=== PATIENT | male | born 1945 | race Caucasian/White ===

== ENCOUNTER 2017-07-07 10:55 | Emergency (ER) | payer OTHER ==
--- NOTE | 2017-07-07 11:53 | EDPHY ---
H & P Time Seen by Provider: 07/07/17 11:24 HPI/ROS: CHIEF COMPLAINT: Left-sided facial numbness HISTORY OF PRESENT ILLNESS: Patient is a 72-year-old male who presents emergency department with multiple symptoms. On Friday he developed left- sided headaches. These were waxing and waning. On Friday he noticed that his left gum went numb. He went to urgent care on Friday and was subsequently discharged. He set up an appointment for follow-up with his primary care physician. Today he woke up with the left side of his face feeling numb. He went to urgent care and was sent to the emergency department. Patient states that he has had some taste sensation changes on his tongue. Feels as though he cannot fully close his left eye. He has no visual change. No neck pain. No recent fall or trauma. No fevers or chills. REVIEW OF SYSTEMS: My complete review of systems is negative except as mentioned in the HPI. 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 No hypertension , no diabetes, no coronary artery disease Social history: The patient does not smoke Smoking Status: Never smoked Physical Exam: Vitals noted GENERAL: Well-appearing, in no acute distress, alert. HEENT: mildly injected left eye, normal pharynx, no signs of dehydration. Extraocular movements intact. PERRLA NECK: No thyromegaly, no lymphadenopathy, supple. RESPIRATORY: Clear to auscultation bilaterally, no rales, rhonchi or wheezing. CVS: Regular rate and rhythm, no rubs, murmurs, or gallops. ABDOMEN: Soft, nontender, nondistended, no organomegaly. BACK: Normal to inspection, no CVA tenderness. SKIN: Normal color, no rash, warm, dry. No pallor. EXTREMITIES: No pedal edema, no calf tenderness, no Homans sign or cords, no joint swelling. NEURO/PSYCH: Higher functions: Alert and Oriented x3. Normal speech and cognition. Normal mood and affect. Cranial nerves: Patient has difficulty shutting his left eye. He does have normal movement of his forehead. The patient has a slight left lower facial droop Cerebellar: Normal as tested. Good finger to nose, good [id number], normal gait. Peripheral exam: Normal motor exam. Normal sensation. Normal reflexes. Constitutional: Initial Vital Signs Temperature (C) 36.4 C 07/07/17 10:57 Heart Rate 74 07/07/17 10:57 Respiratory Rate 17 07/07/17 10:57 Blood Pressure 138/82 H 07/07/17 10:57 O2 Sat (%) 92 07/07/17 10:57 O2 Delivery Mode Room Air Allergies/Adverse Reactions: No Allergies [NKDA] Allergy (Verified 07/07/17 10:57) ENVIRONMENTAL Allergy (Mild, Uncoded 11/02/10 17:52) Other-Enter Comments Home Medications: Medication Instructions Recorded [place] 11/02/10 Flonase 11/02/10 Testosterone Patch 11/02/10 Valacyclovir HCl [Valtrex] 1,000 mg PO TID #21 tab 07/07/17 predniSONE 20 mg PO TID 7 Days 07/07/17 Medical Decision Making - Diagnostics Imaging Results: Imaging Impressions Brain MRI 07/07/17 11:39 Impression: 1. Several nonspecific hyperintense T2/FLAIR signal abnormalities in the white matter of bilateral cerebral hemispheres. Differential diagnosis includes moderate microvascular ischemic gliosis, migraine-related sequela, atypical demyelinating disease, or postinfectious/post inflammatory sequela. 2. No acute infarct, acute hemorrhage, hydrocephalus, or mass effect. 3. Right maxillary sinus mucous retention cyst. Findings and recommendations discussed with Emergency Department physician, Pura Hernandez, at 1316 hours on July 07, 2017. Final report concurs with initial preliminary interpretation. Head CT 07/07/17 11:39 Impression: There is no acute intracranial abnormality identified on this unenhanced CT evaluation. If there is further clinical concern regarding the patient's symptoms, MR imaging is suggested, if not otherwise contraindicated. Findings were discussed with PURA HERNANDEZ MD at 13:14, on 07/07/2017. ED Course/Re-evaluation: In the emergency department I discussed possible etiologies with the patient. I answered all his questions. Due the patient's headache the CT without contrast was ordered. Due the patient is facial asymmetry an MRI was ordered. I considered [place]'s palsy. However, he does have movement of his forehead on both sides. Head CT: No acute disease noted. Please refer the dictated report by Dr. Kristofer Fisher. Brain MRI: Please refer the dictated report by Dr. Waldron. No acute CVA. The patient does have a noted cyst. I discussed the results with the patient. I answered all his questions. The patient was placed on valacyclovir and prednisone. I discussed this with the patient. He will follow up with Neurology. He is given warnings prior to leaving. He will return with worsening symptoms. Differential Diagnosis: My differential includes but is not limited to [place]'s palsy, ischemic CVA, hemorrhagic CVA, dissection, aneurysm, subarachnoid hemorrhage, subdural hematoma, epidural hematoma, electrolyte abnormality, sugar abnormality - Data Points Laboratory Results: Laboratory Results 07/07/17 12:05 07/07/17 12:05 07/07/17 07/07/17 12:05 12:05 WBC 4.20 10^3/uL 10^3/uL (3.80-9.50) RBC 4.54 10^6/uL 10^6/uL (4.40-6.38) Hgb 14.1 g/dL g/dL (13.7-17.5) Hct 41.4 % % (40.0-51.0) MCV 91.2 fL fL (81.5-99.8) MCH 31.1 pg pg (27.9-34.1) MCHC 34.1 g/dL g/dL (32.4-36.7) RDW 13.2 % % (11.5-15.2) Plt Count 143 10^3/uL L 10^3/uL (150-400) MPV 9.4 fL fL (8.7-11.7) Neut % (Auto) 58.7 % % (39.3-74.2) Lymph % (Auto) 28.6 % % (15.0-45.0) [place] % (Auto) 8.6 % % (4.5-13.0) Eos % (Auto) 2.9 % % (0.6-7.6) Baso % (Auto) 1.0 % % (0.3-1.7) Nucleat RBC Rel Count 0.0 % % (0.0-0.2) Absolute Neuts (auto) 2.47 10^3/uL 10^3/uL (1.70-6.50) Absolute Lymphs (auto) 1.20 10^3/uL 10^3/uL (1.00-3.00) Absolute Monos (auto) 0.36 10^3/uL 10^3/uL (0.30-0.80) Absolute Eos (auto) 0.12 10^3/uL 10^3/uL (0.03-0.40) Absolute Basos (auto) 0.04 10^3/uL 10^3/uL (0.02-0.10) Absolute Nucleated RBC 0.00 10^3/uL 10^3/uL (0-0.01) Immature Gran % 0.2 % % (0.0-1.1) Immature Gran # 0.01 10^3/uL 10^3/uL (0.00-0.10) Sodium 142 mEq/L mEq/L (134-144) Potassium 4.5 mEq/L mEq/L (3.5-5.2) Chloride 105 mEq/L mEq/L (97-110) Carbon Dioxide 25 mEq/l mEq/l (22-31) Anion Gap 12 mEq/L mEq/L (8-16) BUN 35 mg/dL H mg/dL (7-23) Creatinine 1.3 mg/dL mg/dL (0.7-1.3) Estimated GFR 54 Glucose 95 mg/dL mg/dL (70-100) Calcium 9.5 mg/dL mg/dL (8.5-10.4) Troponin I < 0.012 ng/mL ng/mL (0.000-0.034) Departure - Departure Disposition: Home, Routine, Self-Care Clinical Impression: [place]'s palsy Condition: Good Instructions: [place] Palsy (ED) Additional Instructions: Make sure you do not injury your left eye. He may have to apply moisture drops and close your eye at night. Take your entire course of antibiotics and antiviral therapy. Follow up with Neurology. Your head CT and MRI did not show any acute stroke. Referrals: Yo Pedro DO [Doctor of Osteopathy] - 5-7 days, call for appt. Prescriptions: predniSONE 20 mg PO TID 7 Days Valacyclovir HCl [Valtrex] 1,000 mg PO TID #21 tab
--- NOTE | 2017-07-07 12:08 | CPEKG ---
Heart Rate: 64 RR Interval: 938 P-R Interval: 180 QRSD Interval: 92 QT Interval: 392 QTC Interval: 405 P [place]: 70 QRS [place]: 24 T Wave [place]: 47 EKG Severity - NORMAL ECG - EKG Impression: SINUS RHYTHM Electronically Signed By: Vanessa Hernandez 07-Jul-2017 15:26:40
[2017-07-07 12:18] LABS: % IMMATURE GRANULYOCYTES 0.2 % (0.0-1.1); ABSOLUTE IMMATURE GRANULOCYTES 0.01 10^3/uL (0.00-0.10); ADD DIFF? NO; ADD MORPH? NO; ADD SCAN? NO; ATYPICAL LYMPHOCYTE FLAG 10 (0-99); FRAGMENT RBC FLAG 0 (0-99); HEMATOCRIT 41.4 % (40.0-51.0); HEMOGLOBIN 14.1 g/dL (13.7-17.5); LEFT SHIFT FLG 0 (0-99); LIPEMIA HEMOLYSIS FLAG 90 (0-99); MEAN CELL HEMOGLOBIN 31.1 pg (27.9-34.1); MEAN CELL HEMOGLOBIN CONCENTR. 34.1 g/dL (32.4-36.7); MEAN CELL VOLUME 91.2 fL (81.5-99.8); MEAN PLATELET VOLUME 9.4 fL (8.7-11.7); PLATELET CLUMPS FLAG 0 (0-99); PLATELET COUNT 143 10^3/uL (150-400); RED BLOOD CELL COUNT 4.54 10^6/uL (4.40-6.38); RED CELL DISTRIBUTION WIDTH 13.2 % (11.5-15.2)
[2017-07-07 12:27] LABS: ANION GAP 12 mEq/L (8-16); CALCIUM 9.5 mg/dL (8.5-10.4); CARBON DIOXIDE 25 mEq/l (22-31); CHLORIDE 105 mEq/L (97-110); CREATININE 1.3 mg/dL (0.7-1.3); GLOMERULAR FILTRATION RATE 54; GLUCOSE 95 mg/dL (70-100); POTASSIUM 4.5 mEq/L (3.5-5.2); SODIUM 142 mEq/L (134-144)
[2017-07-07 12:39] LABS: TROPONIN I < 0.012 ng/mL (0.000-0.034)
[2017-07-07 13:58] VITALS: BP 152/84; PULSE 54; RESP 16; TEMP 97.9; O2SAT 96
== END 2017-07-07 13:58 | disposition home or self-care (01) ==
DX: G51.0 Bell's palsy (principal)

== ENCOUNTER → 2019-03-11 | Outpatient (CLI) | payer OTHER | LOC: BMCIMAGING 09:11 | PROVIDERS: ATTEND Orthopaedic Surgery | DX: M17.12 Unilateral primary osteoarthritis, left knee (principal) ==